=== PATIENT | female | born 1985 | race Caucasian/White ===

== ENCOUNTER 2016-05-14 09:10 | Emergency (ER) | payer BC ==
[2016-05-14 09:27] VITALS: BP 112/64
--- NOTE | 2016-05-14 10:28 | UC ---
UC General HPI - HPI Summary HPI Summary: patient has had a slight fever and n/v/d. she is 28 weeks . was exposed to flu, worried she may have it. - History of Current Complaint Chief Complaint: UCGeneralIllness Stated Complaint: SORE THROAT Time Seen by Provider: 05/14/16 10:07 Hx Obtained From: Patient Onset/Duration: Sudden Onset, Lasting Hours Onset Severity: Mild Current Severity: Moderate Pain Intensity: 2 Associated Signs & Symptoms: Positive: Diarrhea, Fever, Vomiting - Allergy/Home Medications Allergies/Adverse Reactions: Allergies Allergy/AdvReac Type Severity Reaction Status Date / Time No Known Allergies Allergy Verified 05/14/16 09:26 PMH/Surg Hx/FS Hx/Imm Hx Previously Healthy: Yes Cardiovascular History Of: Reports: Cardiac Disorders - PDA as child - Surgical History Surgical History: Yes Surgery Procedure, Year, and Place: heart surgery PDA. right ovary cyst removal - Family History Known Family History: Negative: Hypertension, Blood Disorder - Social History Alcohol Use: None Substance Use Type: None Smoking Status (MU): Never Smoked Tobacco - Immunization History Most Recent Influenza Vaccination: 02/2019 Review of Systems Constitutional: Chills, Fatigue Skin: Negative Eyes: Negative ENT: Negative Respiratory: Cough Cardiovascular: Negative Gastrointestinal: Vomiting, Diarrhea Genitourinary: Negative Motor: Negative Musculoskeletal: Negative Neurological: Headache Psychological: Negative All Other Systems Reviewed And Are Negative: Yes Physical Exam Triage Information Reviewed: Yes Appearance: No Pain Distress, Well-Nourished, Ill-Appearing Vital Signs: Initial Vital Signs Temp 98.5 F 05/14/16 09:17 Pulse 109 05/14/16 09:17 Resp 18 05/14/16 09:17 BP 112/64 05/14/16 09:17 Pulse Ox 99 05/14/16 09:17 Vital Signs Reviewed: Yes Eye Exam: Normal Eyes: Positive: Conjunctiva Clear ENT Exam: Normal ENT: Positive: Normal ENT inspection, Pharynx normal, TMs normal Dental Exam: Normal Neck exam: Normal Neck: Positive: Supple, Nontender, No Lymphadenopathy Respiratory Exam: Normal Respiratory: Positive: Chest non-tender, Lungs clear, Normal breath sounds Cardiovascular Exam: Normal Cardiovascular: Positive: RRR, No Murmur, Pulses Normal Abdominal Exam: Normal Abdomen Description: Positive: Nontender, No Organomegaly, Soft Bowel Sounds: Positive: Present Musculoskeletal Exam: Normal Musculoskeletal: Positive: Strength Intact, ROM Intact, No Edema Neurological Exam: Normal Neurological: Positive: Alert, Muscle Tone Normal Psychological Exam: Normal Skin Exam: Normal Course/Dx - Course Course Of Treatment: hx obtianed, patient exposed to flu, denied need for any medications at thist time. reviewed warnign signs to watch for dehydration. and symptomatic treatment. - Differential Dx - Multi-Symptom Provider Diagnoses: vomiting. prgnancy. diarrhea Discharge - Discharge Plan Condition: Stable Disposition: HOME Patient Education Materials: Nausea and Vomiting in (ED) Additional Instructions: get plenty of rest and increase fluid intake as tolerated. If diarrhea persists follow up with your [facility]ER. Your flu test was negative.
[2016-05-14] MEDS ORDERED: PPD test dose* 5 TU/0.1 ML TEST (*USE PPD ORDER SET*) ONE (12:26)
== END 2016-05-14 10:33 | disposition home or self-care (01) ==
LOC: UCEAST 09:10
DX: O21.9 Vomiting of pregnancy, unspecified (principal); Z3A.28 28 weeks gestation of pregnancy; R19.7 Diarrhea, unspecified
CPT/HCPCS: 87502; 99211; G0463

== ENCOUNTER 2016-08-17 14:36 | Inpatient (IN) | payer BC ==
[2016-08-17 15:09] LABS: ROM Internal QC QC Line Present
[2016-08-17 15:57] LABS: Hematocrit 41 % (35-47); Hemoglobin 13.9 g/dl (12.0-16.0); Mean Corpuscular HGB Conc 34 g/dl (31-36); Mean Corpuscular Hemoglobin 33 pg (27-31); Mean Corpuscular Volume 95 fL (80-97); Mean Platelet Volume 8 um3 (7.4-10.4); Red Blood Count 4.26 10^6/ul (4.0-5.4); Red Cell Distribution Width 13 % (10.5-15); White Blood Count 10.7 10^3/ul (3.5-10.8)
[2016-08-17] MEDS ORDERED: Oxytocin in LR* 20 UNITS/1,000 ML BAG IVPB SCH (17:00)
[2016-08-17] MEDS ORDERED: OBEPIDURAL* 250 ML ONE (18:47)
[2016-08-17] MEDS ORDERED: fentaNYL* 50 MCG/ML 2 ML VIAL (100 MCG VIAL) ONE (18:48)
[2016-08-17] MEDS ORDERED: Famotidine TAB* 20 MG PO PRN (19:52)
[2016-08-17] MEDS ORDERED: Phenylephrine IV* 40 MCG/ML 10 ML SYRINGE IV PUSH PRN ×2 (19:52)
[2016-08-17] MEDS ORDERED: Sodium Citrate/Citric Acid* 15 ML UDC PO PRN (19:52)
[2016-08-17] MEDS ORDERED: OBEPIDURAL* 250 ML EPIDURAL SCH (20:00)
[2016-08-18] MEDS ORDERED: Glycerin ADULT SUPP PR PRN (03:11)
[2016-08-18] MEDS ORDERED: oxyCODONE/Acetamin 5/325 MG* TAB PO PRN (03:11)
[2016-08-18] MEDS ORDERED: Dibucaine 1% 28.35 GM TUBE PR PRN (03:11)
[2016-08-18] MEDS ORDERED: Oxytocin in LR* 20 UNITS/1,000 ML BAG IVPB SCH (04:00)
[2016-08-18] MEDS ORDERED: Ammonia Inhalant* 1 EA AMP ONE (04:53)
[2016-08-18] MEDS ORDERED: Simethicone CHEW TAB* 80 MG PO SCH (08:30)
[2016-08-18] MEDS: Docusate CAP* 100 MG PO SCH ×3 (09:06→21:03)
[2016-08-18] MEDS: Ibuprofen TAB* 600 MG PO PRN ×2 (09:07→16:35)
[2016-08-18] MEDS: Witch Hazel PAD* JAR TOPICAL PRN (09:08)
[2016-08-18] MEDS ORDERED: Phenylephrine IV* 40 MCG/ML 10 ML SYRINGE ONE (19:07)
[2016-08-19 07:01] LABS: Hematocrit 32 % (35-47); Hemoglobin 10.8 g/dl (12.0-16.0); Mean Corpuscular HGB Conc 34 g/dl (31-36); Mean Corpuscular Hemoglobin 33 pg (27-31); Mean Corpuscular Volume 96 fL (80-97); Mean Platelet Volume 8 um3 (7.4-10.4); Red Blood Count 3.31 10^6/ul (4.0-5.4); Red Cell Distribution Width 13 % (10.5-15)
[2016-08-19] MEDS: Docusate CAP* 100 MG PO SCH ×3 (08:27→20:56)
[2016-08-19] MEDS: Acetaminophen TAB* 325 MG PO PRN (08:27)
[2016-08-19] MEDS ORDERED: Ferrous Gluconate TAB* 324 MG TAB PO SCH (09:00)
[2016-08-19] MEDS: Witch Hazel PAD* JAR TOPICAL PRN (09:50)
--- NOTE | 2016-08-19 14:03 | PTEDU ---
Patient Name: ALLYSON GOVEA ALLYSON GOVEA selected video: Never Ever Shake a Baby to view on 08/19/2016 at 2:01:27 PM from Krystina [id number]
--- NOTE | 2016-08-19 14:12 | PTEDU ---
Patient Name: ALLYSON GOVEA ALLYSON GOVEA selected video: BBOB: Bonding Through Massage to view on 08/19/2016 at 2:11 :38 PM from [id number]
[2016-08-19 20:21] VITALS: BP 111/72
[2016-08-20] MEDS: Docusate CAP* 100 MG PO SCH (08:50)
[2016-08-20] MEDS: Acetaminophen TAB* 325 MG PO PRN (10:04)
== END 2016-08-20 12:22 | disposition home or self-care (01) | DRG 560 ==
LOC: MCHOBOUT 14:36 → MCHOB 15:17
PROVIDERS: ADMIT Obstetrics & Gynecology; ATTEND Obstetrics & Gynecology
PROC: 10E0XZZ Delivery of Products of Conception, External Approach (ICD-10-PCS; principal; 2016-08-18)
PROC: 0KQM0ZZ Repair Perineum Muscle, Open Approach (ICD-10-PCS; 2016-08-18)
DX: O48.0 Post-term pregnancy (principal); O99.824 Streptococcus B carrier state complicating childbirth; O70.1 Second degree perineal laceration during delivery; Z3A.41 41 weeks gestation of pregnancy; Z37.0 Single live birth
CPT/HCPCS: 36415; 76815; 84112; 85025; 85027; 86850; 86900; 86901; A9270-GY; J3010

== ENCOUNTER 2016-09-11 10:38 | Emergency (ER) | payer BC ==
[2016-09-11 11:06] VITALS: BP 131/65
--- NOTE | 2016-09-11 12:02 | UC ---
Skin Complaint HPI - HPI Summary HPI Summary: 31 female presents with complaints of tick bite to her pubic bone area that she removed this morning. States she was outside over the past couple of days however believes she may have got it yesterday as she would have noticed it in the shower a few days ago. she is currently a 3 week old. Denies erythema migrans, states is minimally red around tick bit, tick was not engorged as it was very small and she is in no pain. Denies any other tick bites. Has not taken and medications. Entire tick was removed. Denies PMHx. Denies fever/chills, arthralgias, headache, and numbness/tingling. - History of Current Complaint Chief Complaint: UCSkin Time Seen by Provider: 09/11/16 11:39 Stated Complaint: TICK BITE Hx Obtained From: Patient Hx Last Menstrual Period: , 3week old ?: No Onset/Duration: Sudden Onset Skin Exposure Onset/Duration: Days Ago Timing: Constant Onset Severity: Mild Current Severity: None Pain Intensity: 0 Pain Scale Used: 0-10 Numeric Location: Other - pubic bone region Character: Redness Aggravating: Nothing Alleviating: Nothing Associated Signs & Symptoms: Positive: Negative Related History: Insect Bite/Sting - tick - Allergy/Home Medications Allergies/Adverse Reactions: Allergies Allergy/AdvReac Type Severity Reaction Status Date / Time No Known Allergies Allergy Verified 08/17/16 15:28 Home Medications: Home Medications Cholecalciferol TAB* [Vitamin D TAB*] 1,000 units PO DAILY 09/11/16 [History Confirmed 09/11/16] Review of Systems Constitutional: Negative Skin: Other - tick bite ENT: Negative Respiratory: Negative Cardiovascular: Negative Gastrointestinal: Negative Motor: Negative Neurovascular: Negative Musculoskeletal: Negative Neurological: Negative All Other Systems Reviewed And Are Negative: Yes PMH/Surg Hx/FS Hx/Imm Hx - Additional Past Medical History Additional PMH: Denies HTN, DM and Asthma. PDA as child. surgically repaired - Surgical History Surgical History: Yes Surgery Procedure, Year, and Place: heart surgery PDA. right ovary cyst removal - Family History Known Family History: Negative: Hypertension, Blood Disorder - Social History Alcohol Use: None Substance Use Type: None Smoking Status (MU): Never Smoked Tobacco - Immunization History Most Recent Influenza Vaccination: 02/21/2016 Most Recent Pneumonia Vaccination: none Vaccination Up to Date: Yes Physical Exam Triage Information Reviewed: Yes Appearance: Well-Appearing, No Pain Distress, Well-Nourished Vital Signs: Initial Vital Signs Temp 97.4 F 09/11/16 11:02 Pulse 93 09/11/16 11:02 Resp 16 09/11/16 11:02 BP 131/65 09/11/16 11:02 Pulse Ox 99 09/11/16 11:02 Vital Signs Reviewed: Yes Eyes: Positive: Conjunctiva Clear ENT: Positive: Normal ENT inspection, Hearing grossly normal, Pharynx normal, TMs normal Dental: Negative: Cervical Lymphadenopathy Neck: Positive: Supple, Nontender, No Lymphadenopathy Respiratory: Positive: Chest non-tender, Lungs clear, Normal breath sounds, No respiratory distress, No accessory muscle use. 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 No leftover FB, minimal erythema, no edema. No pain on palpation. no sign of erythema migrans at this time. rest of skin exam normal Course/Dx - Course Course Of Treatment: reassured that the likliehood of transmitting lyme disease is low due to no tick engorgement and lenght of time tick attached. aware of worsening signs and symptoms of lyme disease. encouraged to keep an eye on bite and look for bullseye rash. Also encrouaged to have blood work testing in a few weeks if worried about lyme disease. Not given doxycycline due to low chance of transmission and patient is . Follow up with pcp. - Differential Diagnoses - Skin Complaint Differential Diagnoses: Cellulitis, Contact Dermatitis, Eczema, Local Allergic Reaction, MRSA, Tick Born Illness, Urticaria - Diagnoses Provider Diagnoses: tick bite Discharge - Discharge Plan Condition: Stable Disposition: HOME Patient Education Materials: Lyme Disease (ED), Tick Bite (ED) Referrals: Non Staff,Doctor [Primary Care Provider] - Additional Instructions: Take ibuprofen for pain and inflammation as needed. Keep bite clean and dry. Wear bugs spray with DEET and clothes when outside. Check skin when you get inside, everytime. If you develop that bullseye rash we discussed, or fever/chills, headache, joint pains please seek medical attention immediately. Follow up with PCP.
== END 2016-09-11 12:04 | disposition home or self-care (01) ==
LOC: UCEAST 10:38
DX: T14.8 Other injury of unspecified body region (principal); W57.XXXA Bitten or stung by nonvenomous insect and other nonvenomous arthropods, initial encounter
CPT/HCPCS: 99211; G0463

== ENCOUNTER 2016-12-07 03:37 | Emergency (ER) | payer BC ==
[2016-12-07] MEDS ORDERED: Morphine INJ* 2 MG/ML 1 ML SYRINGE IV ONE (03:51)
[2016-12-07] MEDS ORDERED: LORazepam INJ* 2 MG/ML 1 ML VIAL IV PUSH ONE (03:51)
--- NOTE | 2016-12-07 04:11 | ED ---
Ashleigh Marshall Rebecca, scribed for Steve Coleman MD on 12/07/16 at 0350 . Back Pain - HPI Summary HPI Summary: Pt is a 31 y/o F BIBA who presents to ED c/o lumbar back pain since 0830 this morning. This morning, she was bending down to put her child in her car seat when her sx began. Pain is currently moderate, ranked 5/10. Has been treating sx with tylenol SOUP PERSON with the last dose at 0200. Sx aggravated by sitting up and standing, alleviated by laying down. Pt is currently breast feeding. - History of Current Complaint Chief Complaint: EDSubstanceAbuse Stated Complaint: BACK PAIN Time Seen by Provider: 12/07/16 03:42 Hx Obtained From: Patient Hx Last Menstrual Period: , 3week old Onset/Duration: Still Present Onset/Duration: Started Hours Ago - This morning at 0830, Still Present Back Pain Location: Is Discrete @ - Lumbar back Severity Currently: Moderate Pain Intensity: 5 Pain Scale Used: 0-10 Numeric Aggravating Symptom(s): Walking Associated Signs And Symptoms: Positive: Negative - Allergies/Home Medications Allergies/Adverse Reactions: Allergies Allergy/AdvReac Type Severity Reaction Status Date / Time No Known Allergies Allergy Verified 08/17/16 15:28 PMH/Surg Hx/FS Hx/Imm Hx Endocrine/Hematology History: Denies: Hx Diabetes Cardiovascular History: Denies: Hx Hypertension Respiratory History: Denies: Hx Asthma - Surgical History Surgery Procedure, Year, and Place: heart surgery PDA. right ovary cyst removal Infectious Disease History: No Infectious Disease History: Reports: Hx Shingles - chicken pox as a kid Denies: History Other Infectious Disease, Traveled Outside the [place] in Last 30 Days - Family History Known Family History: Negative: Hypertension, Blood Disorder - Social History Alcohol Use: None Substance Use Type: Reports: None Smoking Status (MU): Never Smoked Tobacco Review of Systems Negative: Fever Positive: Arthralgia - Lumbar back pain All Other Systems Reviewed And Are Negative: Yes Physical Exam Triage Information Reviewed: Yes Vital Signs On Initial Exam: Initial Vitals Temp Pulse Resp BP Pulse Ox 97.3 F 61 19 103/63 99 12/07/16 03:39 12/07/16 03:39 12/07/16 03:39 12/07/16 03:39 12/07/16 03:39 Vital Signs Reviewed: Yes Appearance: Positive: Pain Distress - mild discomfort, Thin Skin: Positive: Warm Head/Face: Positive: Normal Head/Face Inspection Eyes: Positive: DENTON ENT: Positive: Hearing grossly normal Neck: Positive: Supple Respiratory/Lung Sounds: Positive: Clear to Auscultation, Breath Sounds Present Cardiovascular: Positive: RRR Abdomen Description: Positive: Nontender, Soft Bowel Sounds: Positive: Present Musculoskeletal: Positive: Other - mild bilat lower lumbar spasm Neurological: Positive: Alert, Oriented to Person Place, Time, Normal Gait Psychiatric: Positive: Affect/Mood Appropriate Diagnostics - Vital Signs Vital Signs Temp Pulse Resp BP Pulse Ox 12/07/16 03:39 97.3 F 61 19 103/63 99 - Laboratory Lab Statement: Any lab studies that have been ordered have been reviewed, and results considered in the medical decision making process. Re-Evaluation - Re-Evaluation First Eval Re-Evaluation Time: 06:26 Change: Improved Comment: Pt is doing significantly better. Back Pain Course/Dx - Course Assessment/Plan: Pt is a 31 y/o F BIBA who presents to ED c/o lumbar back pain since 0830 this morning. This morning, she was bending down to put her child in her car seat when her sx began. Pain is currently moderate, ranked 5/10. Has been treating sx with tylenol SOUP PERSON with the last dose at 0200. Sx aggravated by sitting up and standing, alleviated by laying down. Pt is currently breast feeding. In the ED course, the pt was administered Ativan and morphine which improved sx. She will be D/C to home with Dx of low back pain and a follow up with her PCP. She understands and agrees. - Diagnoses Provider Diagnoses: Low back pain Discharge - Discharge Plan Condition: Stable Disposition: HOME Patient Education Materials: Lower Back Exercises (ED), Low Back Strain (ED) Referrals: Non Staff,Doctor [Primary Care Provider] - 3 Days Additional Instructions: Return to ED for any returning or worsening symptoms. The documentation as recorded by the Ashleigh cochran Rebecca accurately reflects the service I personally performed and the decisions made by , Steve Coleman MD.
[2016-12-07 06:51] VITALS: BP 109/66
== END 2016-12-07 07:08 | disposition home or self-care (01) ==
LOC: ED 03:37
DX: M54.5 Low back pain (principal)
CPT/HCPCS: 99284; J2060; J2270

== ENCOUNTER 2017-02-22 19:55 | Emergency (ER) | payer BC ==
[2017-02-22 20:21] VITALS: BP 103/61
--- NOTE | 2017-02-22 21:14 | UC ---
Complaint Female HPI - HPI Summary HPI Summary: bladder pain and vaginal d/c - History Of Current Complaint Chief Complaint: UCGU Stated Complaint: BLADDER PAIN Time Seen by Provider: 02/22/17 21:10 Hx Obtained From: Patient Hx Last Menstrual Period: BEFORE (GAVE 09/07/16) ?: No Onset/Duration: Gradual Onset, Lasting Days Timing: Constant Severity Initially: Mild Severity Currently: Mild Aggravating Factor(s): Urination Alleviating Factor(s): Nothing Associated Signs And Symptoms: Positive: Negative - Allergies/Home Medications Allergies/Adverse Reactions: Allergies Allergy/AdvReac Type Severity Reaction Status Date / Time No Known Allergies Allergy Verified 02/22/17 20:21 PMH/Surg Hx/FS Hx/Imm Hx Previously Healthy: Yes - Surgical History Surgical History: Yes Surgery Procedure, Year, and Place: heart surgery PDA. right ovary cyst removal - Family History Known Family History: Negative: Hypertension, Blood Disorder - Social History Occupation: Works From/At Home Lives: With Family Alcohol Use: None Substance Use Type: None Smoking Status (MU): Never Smoked Tobacco - Immunization History Most Recent Influenza Vaccination: 01/28 Most Recent Pneumonia Vaccination: none Vaccination Up to Date: Yes Review of Systems Constitutional: Negative Skin: Negative Eyes: Negative ENT: Negative Respiratory: Negative Cardiovascular: Negative Gastrointestinal: Negative Genitourinary: Negative, Dysuria, Urgency Motor: Negative Neurovascular: Negative Musculoskeletal: Negative Neurological: Negative Psychological: Negative Is Patient Immunocompromised?: No All Other Systems Reviewed And Are Negative: Yes Physical Exam Triage Information Reviewed: Yes Appearance: Well-Appearing, No Pain Distress, Well-Nourished Vital Signs: Initial Vital Signs Temp 97.7 F 02/22/17 20:17 Pulse 73 02/22/17 20:17 Resp 16 02/22/17 20:17 BP 103/61 02/22/17 20:17 Pulse Ox 100 02/22/17 20:17 Vital Signs Reviewed: Yes Eye Exam: Normal Eyes: Positive: Conjunctiva Clear ENT Exam: Normal ENT: Positive: Normal ENT inspection, Hearing grossly normal, Pharynx normal. Negative: Muffled voice, Hoarse voice, Dental tenderness, Sinus tenderness Dental Exam: Normal Neck exam: Normal Neck: Positive: Supple, Nontender Respiratory Exam: Normal Respiratory: Positive: Chest non-tender, Lungs clear, Normal breath sounds, No respiratory distress, No accessory muscle use Cardiovascular Exam: Normal Cardiovascular: Positive: RRR, No Murmur, Pulses Normal, Brisk Capillary Refill Abdominal Exam: Normal Abdomen Description: Positive: No Organomegaly, Soft, Other: - some supra pubic tenderness. Negative: CVA Tenderness (R), CVA Tenderness (L) Bowel Sounds: Positive: Present Musculoskeletal Exam: Normal Neurological Exam: Normal Neurological: Positive: Alert, Muscle Tone Normal Psychological Exam: Normal Skin Exam: Normal UC Physical Exam Vital Signs On Initial Exam: Initial Vitals Temp Pulse Resp BP Pulse Ox 97.7 F 73 16 103/61 100 02/22/17 20:17 02/22/17 20:17 02/22/17 20:17 02/22/17 20:17 02/22/17 20:17 - Genitalia Exam Female Genitourinary: Normal External Exam, Other - thick vaginal discharge Complaint Female Dx - Course Course Of Treatment: Send cultures patient is breast feeding and will wait for treatment based on culture reports, plan to follow with pcp or go to ED for change or worsening sx - Differential Dx/Diagnosis Provider Diagnoses: Vaginitis Discharge - Discharge Plan Condition: Stable Disposition: HOME Prescriptions: Metronidazole (Topical) [Metronidazole 0.75 % gel] 1 applic TOPICAL DAILY #5 gel Patient Education Materials: Pelvic Pain (ED) Referrals: [facility] [Provider Group] - 2 Days
[2017-02-23 14:11] LABS: Trichomonas Source Endocervical (Negative)
--- NOTE | 2017-02-24 08:36 | ED ---
Progress - Progress Note Progress Note: Pt with + Gardnerella, neg micah Pt - spoke to Poison control center alpesh Sparrow and Okay for topical preparation metronidazole with breast feeding Rx sent to pharmacy Please call pt and advise -[place] 02/24/17 Course/Dx - Diagnoses Provider Diagnoses: Vaginal discharge
== END 2017-02-22 22:18 | disposition home or self-care (01) ==
LOC: UCEAST 19:55
DX: N76.0 Acute vaginitis (principal); Z32.02 Encounter for pregnancy test, result negative
CPT/HCPCS: 84702; 87480; 87491; 87510; 87591; 87661; 99212; G0463

== ENCOUNTER 2017-03-28 07:45 | Emergency (ER) | payer BC ==
--- NOTE | 2017-03-28 09:29 | UC ---
Abdominal Pain Female HPI - HPI Summary HPI Summary: SUDDEN ONSET OF NAUSEA AT 3AM THIS MORNING. HAS HAD MULTIPLE EPISODES OF NAUSEA SINCE THEN FOLLOWED BY FEELING DIZZY AND LIGHTHEADED AND HAS TO SIT DOWN. NO ACTUAL LOC. ALSO HAS LOWER ABDOMINAL CRAMPING AND LOOSE STOOLS. NO FEVER. - History of Current Complaint Chief Complaint: UCGeneralIllness Stated Complaint: NAUSEA Time Seen by Provider: 03/28/17 09:16 Hx Obtained From: Patient Hx Last Menstrual Period: BEFORE (GAVE 09/07/16) Onset/Duration: Sudden Onset, Lasting Hours, Still Present Severity Initially: Moderate Severity Currently: Moderate Pain Intensity: 6 Pain Scale Used: 0-10 Numeric Location: Other - LOWERT ABDOMEN Radiates: No Character: Cramping Aggravating Factor(s): Nothing Alleviating Factor(s): Nothing Associated Signs and Symptoms: Positive: Dizzy, Decreased Appetite, Nausea, Diarrhea Allergies/Adverse Reactions: Allergies Allergy/AdvReac Type Severity Reaction Status Date / Time No Known Allergies Allergy Verified 03/28/17 08:30 PMH/Surg Hx/FS Hx/Imm Hx Previously Healthy: Yes - Surgical History Surgical History: Yes Surgery Procedure, Year, and Place: heart surgery PDA. right ovary cyst removal - Family History Known Family History: Negative: Hypertension, Blood Disorder - Social History Alcohol Use: None Substance Use Type: None Smoking Status (MU): Never Smoked Tobacco - Immunization History Most Recent Influenza Vaccination: 01/28 Most Recent Pneumonia Vaccination: none Vaccination Up to Date: Yes Review of Systems Constitutional: Negative Respiratory: Negative Cardiovascular: Negative Gastrointestinal: Diarrhea, Nausea Genitourinary: Negative Neurological: Other - DIZZY All Other Systems Reviewed And Are Negative: Yes Physical Exam Triage Information Reviewed: Yes Appearance: Well-Appearing, No Pain Distress, Well-Nourished Vital Signs: Initial Vital Signs Temp 97.9 F 03/28/17 08:18 Pulse 88 03/28/17 08:18 Resp 14 03/28/17 08:18 BP 110/65 03/28/17 08:18 Pulse Ox 100 03/28/17 08:18 Vital Signs Reviewed: Yes Eyes: Positive: Conjunctiva Clear ENT: Positive: Hearing grossly normal Neck: Positive: Supple, Nontender, No Lymphadenopathy Respiratory Exam: Normal Cardiovascular Exam: Normal Abdomen Description: Positive: Soft, Other: - MILDLY TENDER LOWER ABDOMEN. NO REBOUND. Negative: CVA Tenderness (R), CVA Tenderness (L), Distended, Guarding Bowel Sounds: Positive: Present Musculoskeletal: Positive: No Edema Neurological: Positive: Alert Psychological: Positive: Age Appropriate Behavior Skin: Negative: rashes Diagnostics - EKG Cardiac Rate: NL Cardiac Rhythm: Sinus: Normal - 87BPM Ectopy: None ST Segment: Normal Abd Pain Female Course/Dx - Differential Dx/Diagnosis Provider Diagnoses: 1. ACUTE GASTROENTERITIS. 2. VASOVAGAL SYNCOPE Discharge - Discharge Plan Condition: Stable Disposition: HOME Prescriptions: Ondansetron ODT TAB* [Zofran Odt TAB*] 4 mg PO Q6H PRN #20 tab.odt PRN Reason: Nausea/Vomiting Patient Education Materials: Syncope (ED), Gastroenteritis (ED) Referrals: No Primary Care Phys,NOPCP [Primary Care Provider] - Additional Instructions: ENSURE ADEQUATE HYDRATION. CLEAR LIQUIDS, BLAND DIET. AVOID CAFFEINE, DAIRY, GREASY, SPICY FOODS. ONCE YOU ARE TOLERATING CLEAR LIQUIDS YOU CAN ADVANCE TO SIMPLE, BLAND FOODS. GO TO THE ER WITHOUT FAIL IF YOUR SYMPTOMS WORSEN. CALL THE NUMBER BELOW FOR ASSISTANCE IN ESTABLISHING WITH A PCP An additional resource available to assist in finding the appropriate physician for your health care needs is the [facility] ([facility]). You may contact them by calling [phone].
[2017-03-28 09:57] VITALS: BP 113/68
== END 2017-03-28 09:55 | disposition home or self-care (01) ==
LOC: UCEAST 07:45
DX: K52.9 Noninfective gastroenteritis and colitis, unspecified (principal); R55 Syncope and collapse; Z32.02 Encounter for pregnancy test, result negative
CPT/HCPCS: 84702; 93005; 99212; G0463

== ENCOUNTER 2017-05-05 17:55 | Emergency (ER) | payer BC ==
[2017-05-05 18:40] VITALS: BP 116/64
--- NOTE | 2017-05-05 20:19 | UC ---
Sanjuana Marshall Abhishek, scribed for Charlie Abdullahi MD on 05/05/17 at 1927 . Back Pain HPI - HPI Summary HPI Summary: This patient is a 31 year old F presenting to [facility] with a chief complaint of body aches since two months ago. Pt states she has had a baby 8 months ago. She describes the pain as a back pain that radiated to the knee and hip. Pt also described the pain as a joint pain. Pt has had not had a modoc screening at her previous [facility] visit. Pt had two tick bites previously in the end of spring last year and another end of summer. The patient rates the pain 7/10 in severity. Symptoms aggravated by nothing. Symptoms alleviated by nothing. Patient reports rhinorrhea, fatigue, insomnia, sore throat, tingling in the toes and dizziness. Patient denies VIZCARRA, SOB, chest pain, abd pain, decreased appetite, hematochezia, and urinary symptoms. Allergies reviewed and medications reviewed. - History of Current Complaint Chief Complaint: UCGeneralIllness Stated Complaint: TICK BITE Time Seen by Provider: 05/05/17 19:12 Hx Obtained From: Patient Hx Last Menstrual Period: Breast feeding 2016 Onset/Duration: Gradual Onset - two months ago Timing: Constant Pain Scale Used: 0-10 Numeric Aggravating Factor(s): Nothing Alleviating Factor(s): Nothing Associated Signs And Symptoms: Positive: Tingling - toes, Other - back pain radiating to the knee and hip, rhinorrhea, fatigue, insomnia, sore throat, and tingling in the toes - Allergies/Home Medications Allergies/Adverse Reactions: Allergies Allergy/AdvReac Type Severity Reaction Status Date / Time No Known Allergies Allergy Verified 05/05/17 18:40 Home Medications: Home Medications Prenat Vit W/ Iron Carbonyl-Fe [Ob Complete/Dha] 1 cap PO DAILY 05/05/17 [ History Confirmed 05/05/17] PMH/Surg Hx/FS Hx/Imm Hx Other Cardiovascular History: Negative HTN Other Cancer History: No Cancer Hx - Surgical History Surgical History: Yes Surgery Procedure, Year, and Place: heart surgery PDA. right ovary cyst removal - Family History Known Family History: Negative: Hypertension, Blood Disorder - Social History Lives: With Family Alcohol Use: None Substance Use Type: None Smoking Status (MU): Never Smoked Tobacco - Immunization History Most Recent Influenza Vaccination: 01/28 Most Recent Pneumonia Vaccination: none Vaccination Up to Date: Yes Review of Systems Constitutional: Fatigue Skin: Negative Eyes: Negative ENT: Sore Throat, Nasal Discharge - rhinorrhea Respiratory: Other - Negative SOB Cardiovascular: Other - Negative chest pain Gastrointestinal: Other - Negative abd pain, hematochezia and decreased appetite Genitourinary: Other - Negative urinary symptoms Musculoskeletal: Myalgia - body aches described as back pain radiating to the knee and hip Neurological: Other - Dizziness. Negative VIZCARRA Psychological: Other - insomnia All Other Systems Reviewed And Are Negative: Yes Physical Exam Triage Information Reviewed: Yes Vital Signs: Initial Vital Signs Temp 98.3 F 05/05/17 18:32 Pulse 86 05/05/17 18:32 Resp 18 05/05/17 18:32 BP 116/64 05/05/17 18:32 Pulse Ox 100 05/05/17 18:32 Eye Exam: Normal ENT Exam: Normal Dental Exam: Normal Neck exam: Normal Neck: Positive: 1 Respiratory Exam: Normal Cardiovascular Exam: Normal Abdominal Exam: Normal Musculoskeletal Exam: Normal Neurological Exam: Normal Psychological Exam: Normal Skin Exam: Normal - Additional Comments General: well-appearing, no pain distress Skin: warm, color reflects adequate perfusion, dry Head: normal Eyes: EOMI, DENTON ENT: normal Neck: supple, nontender Respiratory: CTA, breath sounds present Cardiovascular: RRR Abdomen: soft, nontender Bowel: present Musculoskeletal: normal, strength/ROM intact Neurological: normal, sensory/motor intact, A&O x3 Psychological: affect/mood appropriate Back Pain Course/Dx - Course Course Of Treatment: WILL CHECK LABS FOR FATIGUE/LYME AND TREAT FOR LYME ARTHRITIS. F/U PMD; RETURN IF WORSE. - Differential Dx/Diagnosis Provider Diagnoses: ARTHRALGIAS,. FATIGUE,. HX TICK BITE Discharge - Discharge Plan Condition: Stable Disposition: HOME Prescriptions: Amoxicillin PO (*) [Amoxicillin 500 MG CAP*] 500 mg PO TID #84 cap Patient Education Materials: Tick Bite (ED), Arthralgia (ED), Fatigue (ED) Referrals: [facility] [place] [facility] [[place]] No Primary Care Phys,NOPCP [Primary Care Provider] - Additional Instructions: FOLLOW UP WITH YOUR DOCTOR. GET RECHECKED FOR ANY WORSENING OF YOUR CONDITION OR QUESTIONS OR CONCERNS. The documentation as recorded by the scribe, Sanjuana,Roberto accurately reflects the service I personally performed and the decisions made by me, Charlie Abdullahi MD.
[2017-05-06 10:47] LABS: ABS Basophils 0 10^3/ul (0-0.2); ABS Eosinophils 0.2 10^3/ul (0-0.6); ABS Lymphocytes 3.1 10^3/ul (1.0-4.8); ABS Monocytes 0.8 10^3/ul (0-0.8); ABS Neutrophils 3.3 10^3/ul (1.5-7.7); ABS Nucleated RBC 0 10^3/ul; Eosinophil % 2.7 % (0-6); Hematocrit 39 % (35-47); Hemoglobin 13.1 g/dl (12.0-16.0); Lymphocyte % 41.3 % (25-47); Mean Corpuscular HGB Conc 34 g/dl (31-36); Mean Corpuscular Hemoglobin 31 pg (27-31); Mean Corpuscular Volume 90 fL (80-97); Mean Platelet Volume 9 um3 (7.4-10.4); Nucleated Red Blood Cells % 0.2; Platelet Count 270 10^3/ul (150-450); Red Cell Distribution Width 13 % (10.5-15); White Blood Count 7.4 10^3/ul (3.5-10.8)
[2017-05-06 11:05] LABS: EGFR Non-African American 75.4 (>60)
== END 2017-05-05 19:57 | disposition home or self-care (01) ==
LOC: UCEAST 17:55
DX: M25.569 Pain in unspecified knee (principal); M25.559 Pain in unspecified hip; M54.5 Low back pain; R53.83 Other fatigue
CPT/HCPCS: 36415; 80053; 84443; 85025; 86140; 86618; 99212; G0463

== ENCOUNTER 2017-07-03 07:09 | Emergency (ER) | payer BC ==
[2017-07-03 07:20] VITALS: BP 116/55
--- NOTE | 2017-07-03 15:02 | UC ---
Miguel Marshall Angela, scribed for Gian Meeks MD on 07/03/17 at 0732 . General HPI - HPI Summary HPI Summary: This pt is a 31 y/o female presenting to [facility] c/o constant cough and runny nose x3 days. Pt reports her daughter was diagnosed with the whooping cough, and she has had sick contacts at school. Pt denies fever, chills, abd pain, chest pain. She does not want to be tested for whooping cough and would like a prescription to be treated. PMHx: PDA, R ovarian cyst removal. - History of Current Complaint Chief Complaint: UCRespiratory Stated Complaint: COUGH Time Seen by Provider: 07/03/17 07:11 Hx Obtained From: Patient Hx Last Menstrual Period: 06/12/17 Onset/Duration: Lasting Days, Still Present Timing: Constant Current Severity: Mild Pain Intensity: 1 Character: constant cough Aggravating: nothing Alleviating: nothing Associated Signs & Symptoms: Positive: Cough, Other - POS: runny nose. Negative : Abdominal Pain, Chest Pain, Fever - Allergy/Home Medications Allergies/Adverse Reactions: Allergies Allergy/AdvReac Type Severity Reaction Status Date / Time No Known Allergies Allergy Verified 07/03/17 07:20 PMH/Surg Hx/FS Hx/Imm Hx - Additional Past Medical History Additional PMH: PMHx: PDA, Right ovarian cyst removal Other Cardiovascular History: NEG: HTN - Surgical History Surgical History: Yes Surgery Procedure, Year, and Place: heart surgery PDA. right ovary cyst removal - Family History Known Family History: Negative: Cardiac Disease, Hypertension, Diabetes, Blood Disorder - Social History Alcohol Use: None Substance Use Type: None Smoking Status (MU): Never Smoked Tobacco - Immunization History Most Recent Influenza Vaccination: 01/28 Most Recent Pneumonia Vaccination: none Vaccination Up to Date: Yes Review of Systems Constitutional: Negative Skin: Negative Eyes: Negative ENT: Nasal Discharge Respiratory: Cough Cardiovascular: Negative Gastrointestinal: Negative Genitourinary: Negative Motor: Negative Neurovascular: Negative Musculoskeletal: Negative Neurological: Negative Psychological: Negative All Other Systems Reviewed And Are Negative: Yes Physical Exam - Summary Physical Exam Summary: VITAL SIGNS: Reviewed. GENERAL: Patient is a well-developed and nourished female who is lying comfortable in the stretcher. Patient is not in any acute respiratory distress. HEAD AND FACE: Normocephalic EYES: PERRLA, EOMI x 2. EARS: Hearing grossly intact. MOUTH: Oropharynx within normal limits. NECK: Supple, trachea is midline, no adenopathy, no JVD, no carotid bruit. CHEST: Symmetric, no tenderness at palpation. LUNGS: Clear to auscultation bilaterally. No wheezing or crackles. Constant cough. CVS: Regular rate and rhythm, S1 and S2 present, no murmurs or gallops appreciated. ABDOMEN: Soft, non-tender. Bowel sounds are normal. No abdominal abnormal pulsations. EXTREMITIES: Full ROM in all major joints, no edema, no cyanosis or clubbing. NEURO: Alert and oriented x 3. No acute neurological deficits. Speech is normal and follows commands. SKIN: Dry and warm Triage Information Reviewed: Yes Vital Signs: Initial Vital Signs Temp 98.2 F 07/03/17 07:15 Pulse 115 07/03/17 07:15 Resp 16 07/03/17 07:15 BP 116/55 07/03/17 07:15 Pulse Ox 98 07/03/17 07:15 Vital Signs Reviewed: Yes Course/Dx - Course Course Of Treatment: This pt is a 31 y/o female presenting to [facility] c/o constant cough and runny nose x3 days. Pt reports her daughter was diagnosed with the whooping cough, and she has had sick contacts at school. Pt denies fever, chills , abd pain, chest pain. She does not want to be tested for whooping cough and would like a prescription. PMHx: PDA, R ovarian cyst removal. I discussed all the findings and test results with the patient. Pt was instructed to return to the urgent care or go to ER immediately if any of the symptoms return or worsens. Plan of care was discussed with the patient and pt understands and agrees. All questions were answered to patient satisfaction. There were no further complaints or concerns. Pt will be discharged to home with follow up from PCP and prescriptions for Zithromax, Tessalon Perles, and Robitussin. Pt is hemodynamically stable, alert and oriented x3. - Differential Dx - Multi-Symptom Provider Diagnoses: Cough Discharge - Sign-Out/Discharge Documenting (check all that apply): Discharge - Discharge Plan Condition: Stable Disposition: HOME Prescriptions: Azithromycin TAB* [Zithromax TAB (Z-BOBBY) 250 mg #6 tabs] 2 tab PO .TODAY, THEN 1 DAILY #1 bobby Benzonatate CAP* [Tessalon 100 MG CAP*] 100 mg PO TID PRN #12 cap PRN Reason: Cough guaiFENesin/CODIEN 100MG-10MG* [Robitussin AC 100Mg-10Mg*] 10 ml PO Q6H PRN # 120 ml MDD 40 ml PRN Reason: Cough Patient Education Materials: Antitussives (By mouth) Referrals: [facility] [place] [facility] [Outside] No Primary Care Phys,NOPCP [Primary Care Provider] - Additional Instructions: Take medications as instructed Increase your fluid intake Return to the UC if symptoms worsen The documentation as recorded by the Miguel cochran Angela accurately reflects the service I personally performed and the decisions made by me, Gian Meeks MD.
== END 2017-07-03 07:37 | disposition home or self-care (01) ==
LOC: UCEAST 07:09
DX: R05 Cough (principal)
CPT/HCPCS: 99212; G0463

== ENCOUNTER 2017-10-14 11:13 | Emergency (ER) | payer BC ==
[2017-10-14 11:35] VITALS: BP 106/55
[2017-10-14] MEDS ORDERED: Al Hydrox/Mg Hydrox/Simet LIQ* 30 ML UDC PO ONE (11:49)
--- NOTE | 2017-10-14 12:00 | ED ---
Back Pain - HPI Summary HPI Summary: 32F presents with upper thoracic back pain since yesterday. She states she was going to bed and developed pain. Pain is located in left side of her back. She 's never had this pain before. She states this feels different than her lower back pain. no injury. No numbness or tingling. No weakness. No saddle anesthesia or loss of bowel or bladder. No fevers. She states that she is also been feeling like she's been having acid reflux. She denies any belly pain. She states she's been getting a burning sensation that goes up into her chest. She is not sure if is related to the back pain. She states that last time she had the burning chest discomfort was a couple hours. She has history of acid reflux. She tried some aspirin earlier and back pain seemed to diminish. She states the pain in her back is sharp. She is not on control. She denies smoker. She denies any recent surgeries or immobilizations. Her father had a heart attack in his 40s and has had a history of blood clots. She denies any pain or swelling in calf muscles. - History of Current Complaint Hx Last Menstrual Period: 09/20/17 Pain Intensity: 2 <Lexie Booth - Last Filed: 10/14/17 12:23> <Ariel Allred - Last Filed: 10/16/17 07:30> - History of Current Complaint Chief Complaint: UCBackPain Stated Complaint: UPPER BACK PAIN Time Seen by Provider: 10/14/17 11:41 - Allergies/Home Medications Allergies/Adverse Reactions: Allergies Allergy/AdvReac Type Severity Reaction Status Date / Time No Known Allergies Allergy Verified 07/03/17 07:20 Home Medications: Home Medications Aspirin TAB* [Aspirin 325 MG TAB*] 10/14/17 [History] PMH/Surg Hx/FS Hx/Imm Hx Endocrine/Hematology History: Denies: Hx Diabetes, Hx Thyroid Disease Cardiovascular History: Denies: Hx Hypertension Respiratory History: Denies: Hx Asthma, Hx Chronic Obstructive Pulmonary Disease (COPD) GI History: Denies: Hx Ulcer - Surgical History Surgery Procedure, Year, and Place: heart surgery PDA. right ovary cyst removal Infectious Disease History: No Infectious Disease History: Denies: Hx Clostridium Difficile, Hx Hepatitis, Hx Human Immunodeficiency Virus (HIV), Hx of Known/Suspected MRSA, Hx Shingles - chicken pox as a kid, Hx Tuberculosis, Hx Known/Suspected VRE, Hx Known/Suspected VRSA, History Other Infectious Disease, Traveled Outside the [place] in Last 30 Days - Family History Known Family History: Negative: Cardiac Disease, Hypertension, Diabetes, Blood Disorder - Social History Alcohol Use: None Substance Use Type: Reports: None Smoking Status (MU): Never Smoked Tobacco <Lexie Booth - Last Filed: 10/14/17 12:23> Review of Systems Negative: Fever Positive: Chest Pain Positive: Shortness Of Breath. Negative: Cough Positive: Nausea. Negative: Abdominal Pain Positive: Myalgia - upper back pain All Other Systems Reviewed And Are Negative: Yes <Lexie Booth - Last Filed: 10/14/17 12:23> Physical Exam Triage Information Reviewed: Yes Vital Signs On Initial Exam: Initial Vitals Temp Pulse Resp BP Pulse Ox 99.2 F 82 16 106/55 100 10/14/17 11:26 10/14/17 11:26 10/14/17 11:26 10/14/17 11:26 10/14/17 11:26 Vital Signs Reviewed: Yes Appearance: Positive: Well-Appearing Skin: Positive: Warm, Dry Head/Face: Positive: Normal Head/Face Inspection Eyes: Positive: Normal, EOMI, DENTON, Conjunctiva Clear ENT: Positive: Normal ENT inspection, Pharynx normal, TMs normal Respiratory/Lung Sounds: Positive: Clear to Auscultation, Breath Sounds Present , Other - nontender chest wall Cardiovascular: Positive: Normal, RRR Musculoskeletal: Positive: Strength/ROM Intact - back, Other - tenderness left side of upper back, no midline tenderness, good strenght upper extremities Neurological: Positive: Normal Psychiatric: Positive: Normal <Lexie Booth - Last Filed: 10/14/17 12:23> Vital Signs On Initial Exam: Initial Vitals Temp Pulse Resp BP Pulse Ox 99.2 F 82 16 106/55 100 10/14/17 11:26 10/14/17 11:26 10/14/17 11:26 10/14/17 11:26 10/14/17 11:26 <Ariel Allred - Last Filed: 10/16/17 07:30> Diagnostics - Vital Signs Vital Signs Temp Pulse Resp BP Pulse Ox 10/14/17 11:26 99.2 F 82 16 106/55 100 - EKG No standard instances Cardiac Rate: NL EKG Rhythm: Sinus Rhythm ST Segment: Normal EKG Interpretation: sinus rhythm EKG Comparison: No Significant Change <Lexie Booth - Last Filed: 10/14/17 12:23> - Vital Signs Vital Signs Temp Pulse Resp BP Pulse Ox 10/14/17 11:26 99.2 F 82 16 106/55 100 <Ariel Allred - Last Filed: 10/16/17 07:30> Back Pain Course/Dx - Course Course Of Treatment: 32F presents with upper thoracic back pain since yesterday. She states she was going to bed and developed pain. Pain is located in left side of her back. She's never had this pain before. She states this feels different than her lower back pain. no injury. No numbness or tingling. No weakness. No saddle anesthesia or loss of bowel or bladder. No fevers. She states that she is also been feeling like she's been having acid reflux. She denies any belly pain. She states she's been getting a burning sensation that goes up into her chest. She is not sure if is related to the back pain. She states that last time she had the burning chest discomfort was a couple hours. She has history of acid reflux. She tried some aspirin earlier and back pain seemed to diminish. She states the pain in her back is sharp. She is not on control. She denies smoker. She denies any recent surgeries or immobilizations. Her father had a heart attack in his 40s and has had a history of blood clots. She denies any pain or swelling in calf muscles. On exam tenderness on left side of upper back. no midline tenderness. Nonreproducible chest pain. Lungs clear to auscultation. EKG similar to previous with no ST changes. Discuss options with patient that does have a risk factor with family history in heart disease may need further evaluation. Offered a chest x-ray here and patient declined. Patient believes it might be GI related. We'll try a GI cocktail. not any better. discussed that should go to ED for further evulaution but patient declined as wants to treat as muscular at this time and see if it gets better. - Diagnoses Differential Diagnosis/HQI/PQRI: Positive: Herniated Disc, Sprain, Other - ACS, PE, <EmmyLexie - Last Filed: 10/14/17 12:23> <Ariel Allred - Last Filed: 10/16/17 07:30> - Diagnoses Provider Diagnoses: Back pain Discharge - Sign-Out/Discharge Documenting (check all that apply): Discharge/Admit/Transfer - Billing Disposition and Condition Condition: GOOD Disposition: Home <Lexie Booth - Last Filed: 10/14/17 12:23> - Billing Disposition and Condition Condition: GOOD Disposition: Home <Ariel Allred - Last Filed: 10/16/17 07:30> - Discharge Plan Condition: Good Disposition: HOME Patient Education Materials: Back Pain (ED) Referrals: [facility] [place] [facility] [Outside] Additional Instructions: will treat as muscular at this time but is no way to rule out anything at this time without an ED visit. If chest pain or shortness of breath worsens go immediately to the ED. Try tyenlol or ibuprofen for pain every 6 hours ice/heat stretch establish care with primary care physician Per institutional requirements, I have reviewed the chart, however, I was not consulted specifically or made aware of this patient by the above midlevel provider. I did not personally evaluate, interact with , or disposition this patient.
== END 2017-10-14 12:26 | disposition home or self-care (01) ==
LOC: UCEAST 11:13
DX: M54.6 Pain in thoracic spine (principal); Z79.82 Long term (current) use of aspirin
CPT/HCPCS: 93005; 99211; A9270-GY; G0463

== ENCOUNTER 2018-11-01 10:48 | Emergency (ER) | payer BC ==
[2018-11-01 11:09] VITALS: BP 109/68
--- NOTE | 2018-11-01 11:39 | UC ---
Throat Pain/Nasal Oh HPI - HPI Summary HPI Summary: Patient is a 34-year-old female who presents to the urgent care with a chief complaint of having sore throat. The patient is be having the symptoms for the last 5 days. She denies any fever, denies any trismus, denies any swelling of the tongue or swelling of the lips. She has no sick contacts. The patient reports that she is . Patient reports that the last couple days she's been having some vaginal spotting. Denies and abdominal cramping. She has spoken with her mechanical planner today and they recommend for the patient to be seen tomorrow. The patient is a 1 have any workup for the vaginal spotting today. - History of Current Complaint Chief Complaint: UCGeneralIllness Stated Complaint: SORE THROAT,URINARY ISSUE Time Seen by Provider: 11/01/18 11:31 Hx Obtained From: Patient Hx Last Menstrual Period: 06/30/18 Pain Intensity: 7 - Allergies/Home Medications Allergies/Adverse Reactions: Allergies Allergy/AdvReac Type Severity Reaction Status Date / Time No Known Allergies Allergy Verified 11/01/18 11:09 PMH/Surg Hx/FS Hx/Imm Hx Previously Healthy: Yes - Surgical History Surgical History: Yes Surgery Procedure, Year, and Place: heart surgery PDA. right ovary cyst removal - Family History Known Family History: Positive: Non-Contributory Negative: Cardiac Disease, Hypertension, Diabetes, Blood Disorder - Social History Alcohol Use: None Substance Use Type: None Smoking Status (MU): Never Smoked Tobacco - Immunization History Most Recent Influenza Vaccination: 01/28 Most Recent Pneumonia Vaccination: none Vaccination Up to Date: Yes Review of Systems All Other Systems Reviewed And Are Negative: Yes Constitutional: Positive: Negative Skin: Positive: Negative Eyes: Positive: Negative ENT: Positive: Sore Throat Respiratory: Positive: Negative Cardiovascular: Positive: Negative Gastrointestinal: Positive: Negative Genitourinary: Positive: Negative Motor: Positive: Negative Neurovascular: Positive: Negative Musculoskeletal: Positive: Negative Neurological: Positive: Negative Psychological: Positive: Negative Is Patient Immunocompromised?: No Physical Exam - Summary Physical Exam Summary: Vital signs: Reviewed Gen.: Patient is a well developed and nourished female in no acute distress. Patient is sitting comfortably on the stretcher. Head: Normacephalic and atraumatic Eyes: PERRLA, EOMI x2. Ears: Right ear canal and TM WNL Left ear canal and TM WNL Nose Nose with dry mucosa and clear discharge. No sinus tenderness and mouth: Mild pharyngeal erythema with no exudate. Neck: Supple, no bilateral submandibular and anterior cervical lymphadenopathy. No JVD Lungs: CTA B/L CVS: S1 & S2 present. No murmurs appreciated. ABDOMEN: Soft NT w/ positive BS. EXT: FROM x 4 NEURO: A+O X 3. Triage Information Reviewed: Yes Appearance: Well-Appearing Vital Signs: Initial Vital Signs Temp 98 F 11/01/18 11:06 Pulse 98 11/01/18 11:06 Resp 18 11/01/18 11:06 BP 109/68 11/01/18 11:06 Pulse Ox 100 11/01/18 11:06 Vital Signs Reviewed: Yes Throat Pain/Nasal Course/Dx - Course Course Of Treatment: Rapid strep test is negative. Urinalysis negative for UTI. Patient was recommended to go to the emergency room if she develops any vaginal bleeding or vaginal discharge and abdominal cramping. The patient understands and agrees. Right now the patient reports that she doesn't have any abnormal vaginal bleeding or abdominal cramping. The patient was recommended to take Tylenol for pain or fever. The patient is to follow with the primary care physician. Patient is hemoglobin after stable alert and oriented 3. - Differential Dx/Diagnosis Provider Diagnosis: Viral pharyngitis Discharge - Sign-Out/Discharge Documenting (check all that apply): Patient Departure All imaging exams completed and their final reports reviewed: No Studies - Discharge Plan Condition: Stable Disposition: HOME Patient Education Materials: Pharyngitis (ED) Referrals: Milad Moreno MD [Primary Care Provider] - Additional Instructions: Take medications as instructed Increase your fluid intake F/U with PCP in the next 2-3 days Return to the if symptoms worsen - Billing Disposition and Condition Condition: STABLE Disposition: Home
== END 2018-11-01 12:40 | disposition home or self-care (01) ==
LOC: UCEAST 10:48
DX: J02.8 Acute pharyngitis due to other specified organisms (principal); N92.6 Irregular menstruation, unspecified
CPT/HCPCS: 81002; 87651; 99211; G0463

== ENCOUNTER 2019-02-02 11:21 | Emergency (ER) | payer BC ==
[2019-02-02 12:05] VITALS: BP 97/61
--- NOTE | 2019-02-02 12:09 | UC ---
Skin Complaint HPI - HPI Summary HPI Summary: 33 year old female presents with multiple joint pains. She describes as dull achy pain in large and small joints,from fingers, hips, knees, etc. No spine pains. no fever, chills, redness, joint swelling. Denies painful, more discomfort. no prior c/o, no problems like this with her first . Patient states she was bitten by a tick, non-engorged but attached, to her right leg. no rashes noted since. Denies VIZCARRA, ill, fever symptoms. - History of Current Complaint Chief Complaint: UCGeneralIllness Time Seen by Provider: 02/02/19 12:07 Stated Complaint: JOINT PAIN Hx Obtained From: Patient Hx Last Menstrual Period: edc 04/06/19 ?: Yes Onset/Duration: Gradual Onset, Lasting Days Skin Exposure Onset/Duration: Days Ago Current Severity: Mild Pain Intensity: 4 Pain Scale Used: 0-10 Numeric Location: Diffuse - all joints Aggravating Factor(s): Nothing Alleviating Factor(s): Nothing Associated Signs & Symptoms: Positive: Negative - Allergy/Home Medications Allergies/Adverse Reactions: Allergies Allergy/AdvReac Type Severity Reaction Status Date / Time No Known Allergies Allergy Verified 12/05/18 15:35 PMH/Surg Hx/FS Hx/Imm Hx Previously Healthy: Yes - deliver 04/06 - Surgical History Surgical History: Yes Surgery Procedure, Year, and Place: heart surgery PDA. right ovary cyst removal - Family History Known Family History: Positive: None - Pt denies FMHX, Non-Contributory Negative: Cardiac Disease, Hypertension, Diabetes, Blood Disorder - Social History Alcohol Use: None Substance Use Type: None Smoking Status (MU): Never Smoked Tobacco - Immunization History Most Recent Influenza Vaccination: 01/28 Most Recent Pneumonia Vaccination: none Vaccination Up to Date: Yes Review of Systems All Other Systems Reviewed And Are Negative: Yes Constitutional: Positive: Negative. Negative: Fever, Chills, Fatigue Skin: Negative: Rash Eyes: Negative: Blurred Vision ENT: Negative: Sore Throat, Ear Ache, Nasal Discharge Gastrointestinal: Negative: Abdominal Pain, Vomiting, Diarrhea Musculoskeletal: Positive: Arthralgia. Negative: Decreased ROM, Edema, Myalgia Is Patient Immunocompromised?: No Physical Exam Triage Information Reviewed: Yes Appearance: Well-Appearing, No Pain Distress, Well-Nourished Vital Signs: Initial Vital Signs Temp 99.2 F 02/02/19 12:02 Pulse 89 02/02/19 12:02 Resp 20 02/02/19 12:02 BP 97/61 02/02/19 12:02 Pulse Ox 98 02/02/19 12:02 Vital Signs Reviewed: Yes Eyes: Positive: Conjunctiva Clear ENT: Positive: Hearing grossly normal Musculoskeletal: Positive: Other: - no TTP over Ue's, LE"s, spine. no edema, swelling noted, no erythema, no joint effusions noted. Neurological: Positive: Alert, Muscle Tone Normal Psychological Exam: Normal Skin Exam: Normal Skin: Positive: Other - b/l VVV, no redness, rashed noted over abd, back, b/l LE 's face. Negative: Rashes Course/Dx - Course Course Of Treatment: Multiple arthralgias with h/o tick bite ~ 1 month ago. - Concern for lyme disease- labs sent - Also sent for TSH to monitor thyroid - FOllow up with primary physician or call within 5-7 days for results- will be called with abnormal results. - Increase fluid intake, tylenol for pains - TO go ER with increased pain, nausea/ vomiting, rash - Differential Diagnoses - Skin Complaint Differential Diagnoses: Tick Born Illness, Urticaria - Diagnoses Provider Diagnosis: Diffuse arthralgia Discharge ED - Sign-Out/Discharge Documenting (check all that apply): Patient Departure All imaging exams completed and their final reports reviewed: No Studies - Discharge Plan Condition: Good Disposition: HOME Patient Education Materials: Lyme Disease (ED) Referrals: Milad Moreno MD [Primary Care Provider] - Additional Instructions: - Concern for lyme disease- labs sent - Also sent for TSH to monitor thyroid - FOllow up with primary physician or call within 5-7 days for results- will be called with abnormal results. - Increase fluid intake, tylenol for pains - TO go ER with increased pain, nausea/ vomiting, rash - Billing Disposition and Condition Condition: GOOD Disposition: Home
== END 2019-02-02 12:38 | disposition home or self-care (01) ==
LOC: UCEAST 11:21
DX: M25.552 Pain in left hip (principal); M25.551 Pain in right hip; M25.561 Pain in right knee; M25.562 Pain in left knee; M25.542 Pain in joints of left hand; M25.541 Pain in joints of right hand; R21 Rash and other nonspecific skin eruption
CPT/HCPCS: 36415; 84443; 86618; 99211; G0463